=== PATIENT | male | born 1965 | race American Indian/Alaskan Native ===

== ENCOUNTER 2017-09-03 13:36 | Emergency (ER) | payer OTHER ==
[2017-09-03] MEDS ORDERED: ASPIRIN PO ONE (13:53)
[2017-09-03 14:19] LABS: Basophils % (Auto) 0.4 % (0.0-1.8); Eosinophils # (Auto) 0.1 K/mm3 (0.0-0.4); Eosinophils % (Auto) 0.6 % (0.0-4.3); Hematocrit 45.6 % (35.5-45.6); Hemoglobin 15.8 gm/dl (11.8-15.2); Lymphocytes # (Auto) 1.1 K/mm3 (1.2-5.4); Lymphocytes % (Auto) 13.1 % (13.4-35.0); Mean Corpuscular HGB Conc 35 % (32-34); Mean Corpuscular Hemoglobin 33 pg (28-32); Mean Corpuscular Volume 94 fl (84-94); Monocytes # (Auto) 0.4 K/mm3 (0.0-0.8); Monocytes % (Auto) 4.3 % (0.0-7.3); Platelet Count 216 K/mm3 (140-440); Red Blood Count 4.85 M/mm3 (3.65-5.03); Red Cell Distribution Width 12.9 % (13.2-15.2)
[2017-09-03 14:36] LABS: BUN/Creatinine Ratio 13; Blood Urea Nitrogen 9 mg/dL (9-20); Calcium 9.7 mg/dL (8.4-10.2); Hemolysis Index 5
[2017-09-03] MEDS ORDERED: NITROSTAT SL ONE (15:12)
[2017-09-03] MEDS ORDERED: NACL 0.9% 1000 ML 1,000 ML IV ONE (15:12)
[2017-09-03] MEDS ORDERED: BABY ASPIRIN PO ONE (15:15)
--- NOTE | 2017-09-03 15:15 | Emergency Department Report ---
HPI - General Chief Complaint: Chest Pain Time Seen by Provider: 09/03/17 14:36 - HPI HPI: The patient is a 51-year-old male whom presents for evaluation of chest pain. The patient reports chest pain for the past 2 days, pressure-like in quality, constant since 10 AM this morning, moderate in severity, exacerbated with activity. The patient denies fever, trauma to the chest, cough, syncope, hemoptysis, unilateral leg swelling, recent immobilization, history of DVT or PE , recent cancer, history of familial coagulation disorder. ED Past Medical Hx - Past Medical History Hx Hypertension: Yes Hx Heart Attack/AMI: Yes (NO STENTS--2014 here) Additional medical history: Diverticulitis - Surgical History Additional Surgical History: left knee - Social History Smoking Status: Never Smoker Substance Use Type: Alcohol, Other - Medications Home Medications: Home Medications Medication Instructions Recorded Confirmed Last Taken Type Metoprolol [Lopressor TAB] 50 mg PO BID 30 Days tablet 06/14/14 09/03/17 Rx Simvastatin [Zocor TAB] 20 mg PO QHS 30 Days tablet 06/14/14 09/03/17 09/03/17 Rx hydrALAZINE [Apresoline TAB] 25 mg PO Q8H 30 Days tab 06/14/14 09/03/17 Rx Dicyclomine [Bentyl] 20 mg PO DAILY 06/01/17 09/03/17 09/03/17 History Esomeprazole Magnesium [NexIUM] 40 mg PO QDAY 06/01/17 09/03/17 09/03/17 History ED Review of Systems ROS: Stated complaint: CHEST PX Other details as noted in HPI Constitutional: denies: fever ENT: denies: throat or neck pain Respiratory: denies: cough, shortness of breath Cardiovascular: reports chest pain Endocrine: denies unexplained weight loss or gain Gastrointestinal: denies: abdominal pain, nausea Genitourinary: denies: dysuria Musculoskeletal: denies: leg swelling Skin: denies: rash Neurological: denies: headache Hematological/Lymphatic: denies: easy bleeding or easy bruising Psych: denies sadness or hopelessness Physical Exam - Physical Exam Vital Signs: Vital Signs 09/03/17 09/03/17 14:00 14:06 Temperature 98.8 F Pulse Rate 76 Respiratory 15 Rate Blood Pressure 124/76 O2 Sat by Pulse 100 99 Oximetry Physical Exam: General: well-nourished, well-developed, no acute distress Head: Normocephalic, atraumatic Eyes: normal sclera ENT: Mucous membranes are pink and moist Neck: trachea midline, neck supple, No neck stiffness, no cervical adenopathy Respiratory: Breath sounds equal bilaterally, no wheezing, rales, or rhonchi Cardio: S1 and S2 present, no murmurs, rubs, gallops, capillary refill is brisk Abdomen: Normoactive bowel sounds, soft abdomen, no rigidity, no guarding or rebound tenderness Chest WALL/Back: No tenderness to palpation of the chest wall Musc: No pitting edema Skin: No rash Neuro: no facial drooping, normal speech Psych: Normal affect ED Course Vital Signs 09/03/17 09/03/17 14:00 14:06 Temperature 98.8 F Pulse Rate 76 Respiratory 15 Rate Blood Pressure 124/76 O2 Sat by Pulse 100 99 Oximetry ED Medical Decision Making - Lab Data Result diagrams: 09/03/17 14:05 09/03/17 14:05 - Medical Decision Making The patient was seen and examined by myself. The patient is placed on a youth nutritional monitor and continuous pulse ox. On initial evaluation, the patient was found to be in no distress. EKG was negative for findings suggestive of acute cardiac infarct. The patient is given an aspirin tablet. Labs and imaging are obtained. Chest x-ray is negative for pneumothorax, focal consolidation, pulmonary vascular congestion, pleural effusion, or other obvious acute cardiopulmonary disease process. Lab results were non-revealing including negative troponin, WBC, hemoglobin, hematocrit, electrolytes, renal function. The patient was reevaluated and reported that their symptoms were improved. As the patient has chest pain and risk factors for development of new acute coronary event, the patient will be admitted for close cardiopulmonary monitoring, serial troponins, and evaluation by cardiology. The physician on- call was contacted. They presented to the emergency department and evaluated the patient. They agreed to admit the patient. The ED admit order was placed. The patient was admitted in guarded condition. Critical care attestation.: If time is entered above; I have spent that time in minutes in the direct care of this critically ill patient, excluding procedure time. ED Disposition Clinical Impression: Acute chest pain Disposition: OP ADMIT IP TO THIS HOSP Is pt being admited?: Yes Does the pt Need Aspirin: Yes Condition: Stable Instructions: Chest Pain (ED) Referrals: PRIMARY CARE, [Primary Care Provider] - 3-5 Days Time of Disposition: 15:04
--- NOTE | 2017-09-03 15:33 | XRay Report ---
AP CHEST: HISTORY: chest pain AP view of the chest demonstrates a normal mediastinal and cardiac contour with clear lungs and normal bony and soft tissue structures. IMPRESSION: Unremarkable AP chest.
--- NOTE | 2017-09-03 16:05 | History and Physical Report ---
Medications and Allergies Allergies Allergy/AdvReac Type Severity Reaction Status Date / Time Sulfa (Sulfonamide AdvReac Rash Verified 06/01/17 11:48 Antibiotics) Home Medications Medication Instructions Recorded Confirmed Last Taken Type Metoprolol [Lopressor TAB] 50 mg PO BID 30 Days tablet 06/14/14 09/03/17 Rx Simvastatin [Zocor TAB] 20 mg PO QHS 30 Days tablet 06/14/14 09/03/17 09/03/17 Rx hydrALAZINE [Apresoline TAB] 25 mg PO Q8H 30 Days tab 06/14/14 09/03/17 Rx Dicyclomine [Bentyl] 20 mg PO DAILY 06/01/17 09/03/17 09/03/17 History Esomeprazole Magnesium [NexIUM] 40 mg PO QDAY 06/01/17 09/03/17 09/03/17 History Active Meds: Active Medications Sodium Chloride (Nacl 0.9% 1000 Ml) 1,000 mls @ 125 mls/hr IV BOLUS ONE Stop: 09/03/17 23:11 Last Admin: 09/03/17 15:40 Dose: 125 mls/hr Exam - Constitutional Vitals: Temp Pulse Resp BP Pulse Ox 98.8 F 76 15 124/76 99 09/03/17 14:00 09/03/17 14:00 09/03/17 14:00 09/03/17 14:00 09/03/17 14:06 Results - Labs CBC & Chem 7: 09/03/17 14:05 09/03/17 14:05 Labs: Abnormal lab results 09/03/17 09/03/17 Range/Units 14:05 14:05 Hgb 15.8 H (11.8-15.2) gm/dl MCH 33 H (28-32) pg MCHC 35 H (32-34) % RDW 12.9 L (13.2-15.2) % Lymph % (Auto) 13.1 L (13.4-35.0) % Lymph # 1.1 L (1.2-5.4) K/mm3 Seg Neutrophils % 81.6 H (40.0-70.0) % Carbon Dioxide 21 L (22-30) mmol/L Creatinine 0.7 L (0.8-1.5) mg/dL Glucose 122 H (75-100) mg/dL
[2017-09-03 19:51] VITALS: BP 123/75
--- NOTE | 2017-09-03 21:18 | Cat Scan Report ---
FINAL REPORT PROCEDURE: CT ANGIO CHEST TECHNIQUE: Computerized tomographic angiography of the chest was performed after the IV injection of iodinated nonionic contrast including image processing. The image data was postprocessed using 2-dimensional multiplanar reformatted (MPR) and 3-dimensional (MIP and/or volume rendered) techniques. HISTORY: dypsnea COMPARISON: No prior studies are available for comparison. FINDINGS: Heart and pericardium: No pericardial effusion or thickening. Thoracic aorta: No aneurysm or dissection. There is atherosclerotic calcification. Pulmonary vasculature: Normal. Lymph nodes: No enlarged thoracic lymph nodes. Lungs: Normal. Pleural space: No effusion, thickening, or pneumothorax. Musculoskeletal structures: No significant abnormality. Upper abdominal structures: There are bilateral adrenal nodules, not fully imaged or evaluated. IMPRESSION: No evidence of pulmonary emboli. Bilateral adrenal nodules are present, which are not fully imaged. Recommend follow-up.
== END 2017-09-03 20:10 | disposition admitted as inpatient to this hospital (09) ==
LOC: ED 13:36
DX: R07.9 Chest pain, unspecified (principal); I10 Essential (primary) hypertension; I25.2 Old myocardial infarction; Z86.718 Personal history of other venous thrombosis and embolism; Z86.711 Personal history of pulmonary embolism; Z88.2 Allergy status to sulfonamides
CPT/HCPCS: 36415; 71045; 71275; 80048; 84484; 85025; 85379; 93005; 93010; 96360; 96361; 99285; J7030; Q9967

== ENCOUNTER 2021-01-20 19:46 | Emergency (ER) | payer SELFPAY ==
[2021-01-20] MEDS ORDERED: DICYCLOMINE 20 MG TAB PO ONE (21:13)
[2021-01-20] MEDS ORDERED: ONDANSETRON 4 MG ODT TAB PO ONE (21:13)
[2021-01-20] MEDS ORDERED: FAMOTIDINE 20 MG TAB PO ONE (21:13)
[2021-01-20 21:28] VITALS: BP 133/85
[2021-01-20 21:32] LABS: Basophils # (Auto) 0.1 K/mm3 (0.0-0.1); Basophils % (Auto) 0.8 % (0.0-1.8); Eosinophils # (Auto) 0.3 K/mm3 (0.0-0.4); Eosinophils % (Auto) 3.5 % (0.0-4.3); Hematocrit 43.2 % (35.5-45.6); Hemoglobin 15.2 gm/dl (11.8-15.2); Lymphocytes # (Auto) 1.6 K/mm3 (1.2-5.4); Lymphocytes % (Auto) 21.7 % (13.4-35.0); Mean Corpuscular HGB Conc 35 % (32-34); Mean Corpuscular Volume 96 fl (84-94); Monocytes # (Auto) 0.5 K/mm3 (0.0-0.8); Monocytes % (Auto) 6.1 % (0.0-7.3); Platelet Count 253 K/mm3 (140-440); Red Blood Count 4.49 M/mm3 (3.65-5.03)
[2021-01-20 21:46] LABS: Bilirubin,Urine NEG (Negative); Blood,Urine NEG (Negative); Color,Urine Straw (Yellow); Protein,Urine <15 mg/dL mg/dL (Negative); Urobilinogen,Urine < 2.0 mg/dL (<2.0)
[2021-01-20 21:54] LABS: Alanine Aminotransferase 20 units/L (7-56); Albumin 4.3 g/dL (3.9-5); BUN/Creatinine Ratio 11; Blood Urea Nitrogen 10 mg/dL (9-20); Calcium 9.4 mg/dL (8.4-10.2); Hemolysis Index 53
--- NOTE | 2021-01-20 22:02 | Emergency Department Report ---
ED Abdominal Pain HPI - General Chief Complaint: Abdominal Pain Stated Complaint: STOMACH PAIN/VOMITING PUI?: No Source: patient Mode of arrival: Ambulatory Limitations: No Limitations - History of Present Illness Initial Comments: Patient is a 55-year-old -[place] male with a history of hypertension, diverticulitis, IBS, hyperlipidemia and GERD who presents to the ED with acute onset persistent intermittent nausea and vomiting with epigastric pain for the last 1 week, worse in the last 2 days. Patient states that each time he drinks any fluids he cannot be able to keep down because of persistent nausea and vomiting, worsening his epigastric pain with a burning sensation. Patient also complains of burning sensation in his throat worse with vomiting. Patient states that he does not take any medications for GERD and suspected that it may be his acid reflux worsening. Patient denies chest pain, shortness of breath, dysuria, cough, headache, palpitations, dizziness, syncope, diarrhea, constipation, dysuria, urinary frequency and urgency, fever and chills. MD Complaint: abdominal pain (epigastric pain, nausea, vomiting) -: Sudden, week(s) (1) Location: epigastric Radiation: none Migration to: no migration Severity: moderate Severity scale (0 -10): 4 Quality: aching, burning Consistency: intermittent Improves With: nothing Worsens With: eating, vomiting Context: other (GERD exacerbation) Associated Symptoms: denies other symptoms, nausea, vomiting, anorexia. denies: diarrhea, fever, chills, constipation, dysuria, hematemesis, hematochezia, melena, hematuria, syncope - Related Data Previous Rx's Medication Instructions Recorded Last Taken Type Metoprolol [Lopressor TAB] 50 mg PO BID 30 Days tablet 06/14/14 09/03/17 Rx Simvastatin (Nf) [Zocor TAB] 20 mg PO QHS 30 Days tablet 06/14/14 09/03/17 Rx hydrALAZINE [Apresoline TAB] 25 mg PO Q8H 30 Days tab 06/14/14 09/03/17 Rx Pantoprazole [Protonix TAB] 20 mg PO QDAY #15 tablet. 09/03/17 Unknown Rx Dicyclomine [Bentyl] 20 mg PO Q6H PRN #30 01/20/21 Unknown Rx Esomeprazole Magnesium [NexIUM] 40 mg PO QDAY #40 06/19/21 Unknown Rx Famotidine [Pepcid] 20 mg PO Q12H #60 tablet 01/20/21 Unknown Rx Ondansetron [Zofran Odt] 4 mg PO Q6HR PRN #20 tab.rapdis 01/20/21 Unknown Rx Allergies Allergy/AdvReac Type Severity Reaction Status Date / Time Sulfa (Sulfonamide AdvReac Rash Verified 06/01/17 11:48 Antibiotics) ED Review of Systems ROS: Stated complaint: STOMACH PAIN/VOMITING Other details as noted in HPI Constitutional: denies: chills, fever Eyes: denies: eye pain, eye discharge, vision change ENT: denies: ear pain, throat pain Respiratory: denies: cough, shortness of breath, wheezing Cardiovascular: denies: chest pain, palpitations Endocrine: no symptoms reported Gastrointestinal: abdominal pain (Epigastric pain), nausea, vomiting. denies: diarrhea, constipation, hematemesis, melena, hematochezia Genitourinary: denies: urgency, dysuria Musculoskeletal: denies: back pain, joint swelling, arthralgia Skin: denies: rash, lesions Neurological: denies: headache, weakness, paresthesias Psychiatric: denies: anxiety, depression Hematological/Lymphatic: denies: easy bleeding, easy bruising ED Past Medical Hx - Past Medical History Hx Hypertension: Yes Hx Heart Attack/AMI: Yes (NO STENTS--2013 here) Additional medical history: Diverticulitis, IBS, hyperlipidemia - Surgical History Additional Surgical History: left knee - Social History Smoking Status: Current Every Day Smoker Substance Use Type: Alcohol - Medications Home Medications: Home Medications Medication Instructions Recorded Confirmed Last Taken Type Metoprolol [Lopressor TAB] 50 mg PO BID 30 Days tablet 06/14/14 09/03/17 0 09/03/17 Rx Simvastatin (Nf) [Zocor TAB] 20 mg PO QHS 30 Days tablet 06/14/14 09/03/17 09/03/17 Rx hydrALAZINE [Apresoline TAB] 25 mg PO Q8H 30 Days tab 06/14/14 09/03/17 09/03/17 Rx Pantoprazole [Protonix TAB] 20 mg PO QDAY #15 tablet. 09/03/17 Unknown Rx Dicyclomine [Bentyl] 20 mg PO Q6H PRN #30 01/20/21 Unknown Rx Esomeprazole Magnesium [NexIUM] 40 mg PO QDAY #40 01/20/21 Unknown Rx Famotidine [Pepcid] 20 mg PO Q12H #60 tablet 01/20/21 Unknown Rx Ondansetron [Zofran Odt] 4 mg PO Q6HR PRN #20 tab.rapdis 01/20/21 Unknown Rx ED Physical Exam - General Limitations: No Limitations General appearance: alert, in no apparent distress - Head Head exam: Present: atraumatic, normocephalic, normal inspection - Eye Eye exam: Present: normal appearance, PERRL, EOMI Pupils: Present: normal accommodation - ENT ENT exam: Present: normal exam, normal orophraynx, mucous membranes moist, TM's normal bilaterally, normal external ear exam - Neck Neck exam: Present: normal inspection, full ROM - Respiratory Respiratory exam: Present: normal lung sounds bilaterally. Absent: respiratory distress, wheezes, rales, rhonchi, chest wall tenderness, accessory muscle use, decreased breath sounds, prolonged expiratory - Cardiovascular Cardiovascular Exam: Present: regular rate, normal rhythm, normal heart sounds. Absent: systolic murmur, diastolic murmur, rubs, gallop - GI/Abdominal GI/Abdominal exam: Present: soft, normal bowel sounds. Absent: distended, tenderness, guarding, rebound, hyperactive bowel sounds, hypoactive bowel sounds, organomegaly - Extremities Exam Extremities exam: Present: normal inspection, full ROM, normal capillary refill - Back Exam Back exam: Present: normal inspection, full ROM. Absent: tenderness, CVA tenderness (R), CVA tenderness (L), muscle spasm, paraspinal tenderness - Neurological Exam Neurological exam: Present: alert, oriented X3, CN II-XII intact, normal gait, reflexes normal - Psychiatric Psychiatric exam: Present: normal affect, normal mood - Skin Skin exam: Present: warm, dry, intact, normal color. Absent: rash ED Course Vital Signs 01/20/21 21:12 Temperature 97.7 F Pulse Rate 71 Respiratory 16 Rate Blood Pressure 133/85 O2 Sat by Pulse 96 Oximetry ED Medical Decision Making - Lab Data Result diagrams: 01/20/21 21:20 01/20/21 21:20 - Medical Decision Making This is a 55-year-old -[place] male with a history of hypertension, diverticulitis, IBS, hyperlipidemia and GERD who presents to the ED with acute onset persistent intermittent nausea and vomiting with epigastric pain for the last 1 week, worse in the last 2 days. Patient states that each time he drinks any fluids he cannot be able to keep down because of persistent nausea and vomiting, worsening his epigastric pain with a burning sensation. Patient also complains of burning sensation in his throat worse with vomiting. Patient states that he does not take any medications for GERD and suspected that it may be his acid reflux worsening. In the ED, patient is alert and oriented x3 and is not in any distress. Patient is hemodynamically stable. Lab test results were reviewed and are all nonactionable. Patient was treated for nausea and vomiting in the ED, also given antacids and antispasmodic medications. On reevaluation, patient passed oral fluid challenge in the ED, and patient's burning epigastric pain resolved with medications. Patient symptoms are likely due to GERD exacerbation. Patient was therefore discharged home on antiemetics, antacids and antispasmodics and was advised to follow-up with his primary care physician in 5 to 7 days for reevaluation or return to the ED immediately if symptoms get worse. - Differential Diagnosis GERD; gastritis; gastroenteritis; esophageal spasm Critical care attestation.: If time is entered above; I have spent that time in minutes in the direct care of this critically ill patient, excluding procedure time. ED Disposition Clinical Impression: Nausea and vomiting in adult patient, Acute epigastric pain GERD (gastroesophageal reflux disease) Qualifiers: Esophagitis presence: esophagitis presence not specified Qualified Code(s): K21.9 - Gastro-esophageal reflux disease without esophagitis Disposition: DC- TO HOME OR SELFCARE Is pt being admited?: No Does the pt Need Aspirin: No Condition: Stable Instructions: Heartburn, [id number], Abdominal Pain, Adult, [id number], Nausea and Vomiting, Adult, [id number], Gastroesophageal Reflux Disease, Adult, [id number] Additional Instructions: All lab test results were reviewed and are all nonactionable. Your symptoms are likely due to worsening acid reflux causing persistent nausea and vomiting with a burning sensation in your throat and in your abdomen. Therefore take medications with food, drink plenty of fluids and follow-up with your primary care physician in 5 to 7 days for reevaluation. Return to the ED immediately if symptoms get worse. Prescriptions: Dicyclomine [Bentyl] 20 mg PO Q6H PRN #30 PRN Reason: abdominal pain Esomeprazole Magnesium [NexIUM] 40 mg PO QDAY #40 Famotidine [Pepcid] 20 mg PO Q12H #60 tablet Ondansetron [Zofran Odt] 4 mg PO Q6HR PRN #20 tab.rapdis PRN Reason: Nausea Referrals: [facility] [Provider Group] - 3-5 Days Time of Disposition: 22:03 Print Language: SWISS
== END 2021-01-20 22:32 | disposition home or self-care (01) ==
LOC: ED 19:46
DX: K21.9 Gastro-esophageal reflux disease without esophagitis (principal); R11.2 Nausea with vomiting, unspecified; R10.13 Epigastric pain; I10 Essential (primary) hypertension; I25.2 Old myocardial infarction; F17.200 Nicotine dependence, unspecified, uncomplicated; E78.5 Hyperlipidemia, unspecified; Z79.899 Other long term (current) drug therapy; Z88.2 Allergy status to sulfonamides; Z98.890 Other specified postprocedural states
CPT/HCPCS: 36415; 80053; 81001; 83690; 85025; Q0162